=== PATIENT | female | born 1990 | race Hispanic/Latino ===

== ENCOUNTER 2021-08-14 14:51 | Emergency (ER) | payer MEDICAID ==
[~2021-08-14] VITALS: Ht 149.9 cm; Wt 83.5 kg
[2021-08-14 14:53] VITALS: BP 108/62
[2021-08-14] MEDS ORDERED: KETOROLAC 60 MG VIAL (30MG/ML) IM ONE ×2 (15:15→15:30)
[2021-08-14 15:33] LABS: CREATININE 0.8 mg/dL (0.5-1.5); POTASSIUM 3.7 mmol/L (3.5-5.1)
[2021-08-14 15:37] LABS: ALBUMIN 3.1 g/dL (3.5-5.0); BILIRUBIN,TOTAL 0.2 mg/dL (0.2-1.0); TOTAL PROTEIN, SERUM 7.3 g/dL (6.0-8.3)
[2021-08-14] MEDS ORDERED: NAPR-1180 PO (16:00)
== END 2021-08-14 16:12 | disposition home or self-care (01) ==
LOC: EDH 14:51
DX: M25.561 Pain in right knee (principal); M25.562 Pain in left knee; M76.32 Iliotibial band syndrome, left leg; M76.31 Iliotibial band syndrome, right leg; J45.909 Unspecified asthma, uncomplicated; Z90.49 Acquired absence of other specified parts of digestive tract; Z79.1 Long term (current) use of non-steroidal anti-inflammatories (NSAID); E66.9 Obesity, unspecified; Z68.37 Body mass index [BMI] 37.0-37.9, adult
CPT/HCPCS: 36415; 73560; 80053; 82550; 96372; 99284; J1885